=== PATIENT | male | born 1995 | race Two or more races ===

== ENCOUNTER 2024-07-06 14:25 | Emergency (ER) | payer MEDICAID ==
[~2024-07-06] VITALS: Ht 172.7 cm; Wt 63.6 kg
[2024-07-06] MEDS ORDERED: famotidine/PF IV inj 20 MG in normal saline 100ml IV soln 100 ML IV ONE (14:40)
[2024-07-06] MEDS: diphenhydrAMINE 50 mg/ml inj IV ONE (14:44)
[2024-07-06] MEDS: normal saline 1000ml 1,000 ML IV ONE ×2 (14:46→15:00)
[2024-07-06] MEDS: methylPREDNISolone sod succ 125mg/2ml vial IV ONE (14:47)
[2024-07-06] MEDS: famotidine/PF 10 mg/ml inj IV ONE (14:49)
[2024-07-06 15:01] VITALS: TEMP 98.4
[2024-07-06] MEDS: epiNEPHrine 1 mg/ml inj IM ONE (15:38)
[2024-07-06] MEDS ORDERED: EPIN0.3A3 IM (16:26)
[2024-07-06 16:40] VITALS: BP 132/75; PULSE 65; RESP 18; O2SAT 100
== END 2024-07-06 16:44 | disposition home or self-care (01) ==
LOC: ER 14:26
DX: T78.49XA Other allergy, initial encounter (principal); R06.02 Shortness of breath; R22.0 Localized swelling, mass and lump, head; Z79.899 Other long term (current) drug therapy; X58.XXXA Exposure to other specified factors, initial encounter
CPT/HCPCS: 96361; 96374; 96375; 99284; J1200; J2919; J3490; J7030